=== PATIENT | male | born 1960 | race Caucasian/White ===

== ENCOUNTER 2023-08-10 10:20 | Outpatient (CLI) | payer MEDICARE, SELFPAY ==
--- NOTE | ~2023-08-10 | MR_ITS ---
EXAMINATION: MR knee LT wo con DATE: 08/10/2023 10:54 INDICATION: Other tear of medial meniscus, left knee. Left knee swelling and pain. TECHNIQUE: Magnetic resonance imaging (MRI) of the left knee was performed without intravenous contra st. Sequences included axial PD-weighted FS FSE, coronal PD-weighted FSE and PD-weighted FS FSE, sagi ttal PD-weighted FSE, and sagittal T2-weighted FS FSE. COMPARISON: None. FINDINGS: Medial compartment: There is a complex tear of posterior horn of medial meniscus with paralabral cysts and adjacent semim embranosus-tibial collateral ligament bursitis. There is full-thickness cartilage loss of tibial cond yle involving the medial articular surface with moderate subchondral edema-like marrow signal intensi ty. There is partial-thickness cartilage loss of femoral condyle, deep at the central, lateral, and p osterior articular surface with mild subchondral edema-like marrow signal intensity. Osteophytes are noted. Lateral compartment: Lateral meniscus is normal. Lateral compartment cartilage is normal. Patellofemoral compartment: There is cartilage surface irregularity of patella. There is deep partial-thickness cartilage loss of medial trochlea. Ligaments and tendons: The inferior and posterior cruciate ligaments are normal. There are changes of prior sprains of media l collateral ligament and fibular collateral ligament characterized by thickening and increased signa l intensity proximally. There is mild patellar tendinopathy. Fluid: There is a moderate-sized knee joint effusion. There is mild prepatellar and superficial infrapatella r bursitis. IMPRESSION: 1. 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 2. Complex tear of medial meniscus with paralabral cysts and adjacent semimembranosus-tibial collater al ligament bursitis. 3. Moderate-sized knee joint effusion. Reviewed, dictated and finalized at location E. L GRINDER IMPRESSION: 1. Severe chondrosis of medial compartment and moderate chondrosis of patellofe moral compartment. 2. Complex tear of medial meniscus with paralabral cysts and adjacent semimembr anosus-tibial collateral ligament bursitis. 3. Moderate-sized knee joint effusion.
== END 2023-08-10 10:21 ==
LOC: GOSHIMG 10:23
PROVIDERS: PCP Family Medicine; Visit Provider Nurse Practitioner
DX: S83.232A Complex tear of medial meniscus, current injury, left knee, initial encounter (principal); M71.9 Bursopathy, unspecified; M25.462 Effusion, left knee; T14.90XA Injury, unspecified, initial encounter
CPT/HCPCS: 73721